=== PATIENT | female | born 1955 | race Asian ===

== ENCOUNTER → 2023-08-05 13:02 | Outpatient (REF) | payer OTHER, SELFPAY | LOC: WDC 13:02 | PROVIDERS: ATTENDING PHYSICIAN Internal Medicine | DX: Z12.31 Encounter for screening mammogram for malignant neoplasm of breast (principal) | CPT/HCPCS: 77063; 77067 ==

== ENCOUNTER → 2023-08-10 08:50 | Outpatient (REF) | payer MEDICARE, SELFPAY | LOC: WDC 08:50 | PROVIDERS: ATTENDING PHYSICIAN Internal Medicine | DX: R92.8 Other abnormal and inconclusive findings on diagnostic imaging of breast (principal); Z13.820 Encounter for screening for osteoporosis; M81.0 Age-related osteoporosis without current pathological fracture | CPT/HCPCS: 77080 ==

== ENCOUNTER 2024-03-23 06:21 | Day surgery (SDC) | payer OTHER, SELFPAY ==
[2024-03-23 08:41] LABS: Glucose - Point of Care 107 mg/dl (70-99)
== END 2024-03-23 10:37 | disposition home or self-care (01) ==
LOC: GI 06:21
PROVIDERS: ATTENDING PHYSICIAN Internal Medicine Gastroenterology
DX: Z12.11 Encounter for screening for malignant neoplasm of colon (principal); D12.0 Benign neoplasm of cecum; D12.2 Benign neoplasm of ascending colon; Q43.8 Other specified congenital malformations of intestine; K64.8 Other hemorrhoids; K29.50 Unspecified chronic gastritis without bleeding; K22.89 Other specified disease of esophagus; K44.9 Diaphragmatic hernia without obstruction or gangrene; K31.7 Polyp of stomach and duodenum; Z86.0100 Personal history of colon polyps, unspecified
CPT/HCPCS: 45380; 43239; 88305; 82962; 88342

== ENCOUNTER → 2024-03-28 10:03 | Outpatient (REF) | payer OTHER, SELFPAY | LOC: RAD 10:03 | PROVIDERS: ATTENDING PHYSICIAN Internal Medicine | DX: R77.2 Abnormality of alphafetoprotein (principal) | CPT/HCPCS: 76700 ==

== ENCOUNTER 2024-04-17 13:46 | Inpatient (IN) | payer OTHER, SELFPAY ==
[2024-04-17] VITALS (16 sets, daily range): BP systolic 113–163; BP diastolic 62–96; PULSE 106; O2SAT 96; BMI 21.5; BMI 21.0
--- NOTE | 2024-04-17 09:15 | ED.GENMED ---
History of Present Illness
<Lucille Lopez PA-C - Last Filed: 04/17/24 11:07>
General
Chief Complaint: Dizziness
Source: patient
Exam Limitations: none
Time Seen by Provider: 04/17/24 09:15
Nursing documentation reviewed up to this point in time: agreed with
History of Present Illness
History of Present Illness:
This is a 69-year-old female past medical history of hypertension, GERD, diabetes, presents emergency department today with concerns of headache and dizziness since last night. Patient reports that her headache comes and goes and she feels it in
the front of her forehead. She has never had a headache like this before. She states that she took Tylenol and to sleep and when she woke up her symptoms were still present. She describes the dizziness as a room spinning sensation. She says that
the dizziness does not change with position. Her son is translating for her and notes that she also has had associated body aches diffusely as well as cough and is concerned he might have the flu. She also has on and off nausea. She she also
complains of intermittent chest pressure but denies any shortness of breath. She states that the chest pressure started last night. She denies any fevers or chills, abdominal pain. Denies any syncopal episodes. She notes that she has had low
back pain that started with this yesterday as well, she also feels generalized weakness, she denies any urinary incontinence, paresthesias. She denies any dysarthria, dysphagia, dysphonia.
Past History
<Lucille Lopez PA-C - Last Filed: 04/17/24 11:07>
Past History
ED Past Medical History: HTN and NIDDM
Social History
Tobacco: Non-smoker
Alcohol: None
Review of Systems
<Lucille Lopez PA-C - Last Filed: 04/17/24 11:07>
Review of Systems
All Other Systems: ROS reviewed and negative except as documented in HPI and ROS
Phy Exam
<Lucille Lopez PA-C - Last Filed: 04/17/24 11:07>
Physical Exam
Physical Exam:
General: Patient is well appearing and in no acute distress; non-toxic
Skin: Warm and dry, no rashes or lesions
Head: Normocephalic, atraumatic
Eyes: Sclera non-icteric. EOMs intact.
Cardiac: Regular rate and rhythm, no murmurs
Peripheral Vascular: No lower extremity swelling or edema
Pulm: Normal respiratory effort, no wheezes, rales, rhonchi
Musculoskeletal: 5/5 strength in bilateral upper and lower extremities, paralumbar tenderness noted
Neuro: CN II-XII intact, no focal neurologic deficits. Sensation intact to light touch bilaterally. Normal finger-nose, [id number] testing.
Psychiatric: Appropriate mood and affect.
Course
<Lucille Lopez PA-C - Last Filed: 04/17/24 11:07>
Orders/Labs/Results
Orders:
Orders
04/17/24 08:57
Electrocardiogram (*1) Urgent
Reason for Study: Vertigo / Dizzy
EKG- Treatment ONCE
04/17/24 09:34
CT Head W/o Iv Contrast Urgent
Comment:
Reason For Exam: headache, dizziness
Physical Therapy Consult [Pt Eval And Treat] Urgent
Activity Level: As Tolerated
04/17/24 09:43
COVID-19 Antigen Urgent
Source: Nasal Swab
Complete Blood Count/With Diff Urgent
Comprehensive Metabolic Panel Urgent
Troponin I Urgent
Influenza A+B Rapid Molecular Urgent
DIVYA Source: Nasal Swab
Specimen Description:
04/17/24 10:35
Diphenhydramine [Benadryl] 12.5 mg IV NOW STA
Ketorolac [Toradol] 15 mg IV NOW STA
Metoclopramide [Reglan] 10 mg IV NOW STA
04/17/24 10:57
Osmolality, Random Urine Urgent
04/17/24 11:02
Add On- LAB Urgent
Tests Added?: serum osmolality
Abnormal Lab Results
04/17/24
09:43
RBC 3.98 L 10^6/uL
(4.20-5.40)
Hgb 11.7 L g/dL
(12.0-16.0)
Hct 34.0 L %
(37.0-47.0)
Absolute Lymphs (auto) 0.3 L 10^3/uL
(1.2-3.4)
Immature Gran % 0.7 H %
(0-0.5)
Neutrophils % 85.3 H %
(42.2-75.2)
Lymphocytes % 4.8 L %
(20.5-51.1)
Sodium 126 L mmol/L
(135-145)
Chloride 89 L mmol/L
(98-107)
Creatinine 0.5 L mg/dL
(0.6-1.0)
Glucose 145 H mg/dl
(70-99)
04/17/24 09:43
04/17/24 09:43
Vital Signs
Initial and Last Documented VS:
Initial Vital Signs
Temp Pulse Resp BP Pulse Ox
98.2 F 107 16 156/96 98
04/17/24 08:54 04/17/24 08:54 04/17/24 08:54 04/17/24 08:54 04/17/24 08:54
Last Documented Vital Signs
Temp Pulse Resp BP Pulse Ox
98.2 F 107 23 161/89 95
04/17/24 08:54 04/17/24 11:00 04/17/24 11:00 04/17/24 11:00 04/17/24 11:00
<David Dai, DO - Last Filed: 04/17/24 11:07>
Orders/Labs/Results
Orders:
Orders
04/17/24 08:57
Electrocardiogram (*1) Urgent
Reason for Study: Vertigo / Dizzy
EKG- Treatment ONCE
04/17/24 09:34
CT Head W/o Iv Contrast Urgent
Comment:
Reason For Exam: headache, dizziness
Physical Therapy Consult [Pt Eval And Treat] Urgent
Activity Level: As Tolerated
04/17/24 09:43
COVID-19 Antigen Urgent
Source: Nasal Swab
Complete Blood Count/With Diff Urgent
Comprehensive Metabolic Panel Urgent
Troponin I Urgent
Influenza A+B Rapid Molecular Urgent
DIVYA Source: Nasal Swab
Specimen Description:
04/17/24 10:35
Diphenhydramine [Benadryl] 12.5 mg IV NOW STA
Ketorolac [Toradol] 15 mg IV NOW STA
Metoclopramide [Reglan] 10 mg IV NOW STA
04/17/24 10:57
Osmolality, Random Urine Urgent
04/17/24 11:02
Add On- LAB Urgent
Tests Added?: serum osmolality
Abnormal Lab Results
04/17/24
09:43
RBC 3.98 L 10^6/uL
(4.20-5.40)
Hgb 11.7 L g/dL
(12.0-16.0)
Hct 34.0 L %
(37.0-47.0)
Absolute Lymphs (auto) 0.3 L 10^3/uL
(1.2-3.4)
Immature Gran % 0.7 H %
(0-0.5)
Neutrophils % 85.3 H %
(42.2-75.2)
Lymphocytes % 4.8 L %
(20.5-51.1)
Sodium 126 L mmol/L
(135-145)
Chloride 89 L mmol/L
(98-107)
Creatinine 0.5 L mg/dL
(0.6-1.0)
Glucose 145 H mg/dl
(70-99)
04/17/24 09:43
04/17/24 09:43
Vital Signs
Initial and Last Documented VS:
Initial Vital Signs
Temp Pulse Resp BP Pulse Ox
98.2 F 107 16 156/96 98
04/17/24 08:54 04/17/24 08:54 04/17/24 08:54 04/17/24 08:54 04/17/24 08:54
Last Documented Vital Signs
Temp Pulse Resp BP Pulse Ox
98.2 F 107 23 161/89 95
04/17/24 08:54 04/17/24 11:00 04/17/24 11:00 04/17/24 11:00 04/17/24 11:00
<Lucille Lopez PA-C - Last Filed: 04/17/24 11:07>
MDM/Problems Addressed
Differential Diagnosis Includes:
See below
MDM/Problems Addressed:
NUMBER AND COMPLEXITY OF PROBLEMS ADDRESSED AT THE ENCOUNTER
� Chronic conditions affecting care: Hypertension, GERD, diabetes
� Acute Exacerbation and/or Progression of Chronic Illness:
� Differential Diagnosis includes: Complex migraine, tension headache, vestibular neuritis, BPPV, influenza, COVID-19, ACS, CVA
AMOUNT AND/OR COMPLEXITY OF DATA TO BE REVIEWED AND ANALYZED
� I performed an independent evaluation of and my interpretation is:
EKG: Sinus tachycardia with rate 104, incomplete right bundle branch noted
CT:
Laboratory Studies:
Other:
� Review of other/old records: Reviewed previous records, patient seen for acute dehydration on 10/11/2021 she presented with dizziness and vomiting
� Clinical information was obtained by an independent historian: son present who provided HPI and translated in mandarin for patient
� Prescriptions/Medications Considered but not given: n/a
� Further testing considered but not performed:
RISK OF COMPLICATIONS AND/OR MORBIDITY OR MORTALITY OF PATIENT MANAGEMENT
� Social determinants of health affecting care: language barrier
� Discussion with other providers: ER attending
� Escalation of care including admission/observation vs risk of discharge considered:
69-year-old female with past medical history of diabetes, GERD, hypertension presents emergency department today with concerns of headache and dizziness. She also has associated intermittent chest pressure and body aches. On my physical exam, she
is well-appearing, in no acute distress, her symptoms do not seem to change positionally, she has no focal neurologic deficits, is normal finger-nose [id number] testing, intact sensation. Considering new headache/change in character of headache,
will send for CT of the head, will check EKG trop in light of chest pressure and dizziness.
No evident evidence of bleeding on CT scan. Will treat with Toradol Reglan and Benadryl. Labs reveal sodium of 126. No evidence of dehydration. No clear cause of hyponatremia at this time, will admit for symptomatic hyponatremia and further
workup.
<Lucille Lopez PA-C - Last Filed: 04/17/24 11:07>
*Pulse Oximetry
Patient hypoxic: no
*EKG
Interpreted by ED Provider?: Yes (see above)
*Critical Care Note
Total Time (30-74mins, 75-104mins- exclusive of procedures): Not Applicable
ED Attending Note
<Lucille Lopez PA-C - Last Filed: 04/17/24 11:07>
-
Portions of this chart may have been created with voice recognition software.� Occasional wrong word or��sound alike� substitutions may have occurred due to the inherent limitations of voice recognition software.
<David Dai DO - Last Filed: 04/17/24 11:07>
ED Attending Note
Patient seen and examined by attending physician: Yes
I performed a history and physical exam of patient and discussed management with resident, I reviewed resident's note and agree with documented findings and plan of care.: Yes
ED Attending Note:
I have reviewed and agree with patient treatment plan by Lucille Lopez. My exam revealed 61-year-old female afebrile. Mild tachycardia. No neurologic deficits. Unclear cause of hyponatremia. Will evaluate with further labs, and admit patient.
Unclear if patient is
Discharge Plan
Departure
Patient Disposition: Admit
Discharge Problem:
Acute hyponatremia, Dizziness
Prescriptions:
No Action
Metformin HCl
850 mg PO BID
famotidine 20 mg Tablet
20 mg PO DAILY
docusate sodium [Col-Rite] 100 mg Capsule
100 mg PO BID
hydrochlorothiazide 25 mg Tablet
25 mg PO DAILY
valsartan 160 mg Tablet
160 mg PO DAILY
senna 8.6 mg Capsule
8.6 mg PO BID
Paxlovid 300 mg (150 mg x 2)-100 mg Tablet
3 tab PO QAM AND QPM
ondansetron 4 mg Tablet,Disintegrating
4 mg PO BIDPRN PRN (Reason: nausea/vomiting) Qty: 10 0RF
meclizine [Antivert] 25 mg Tablet,Chewable
25 mg PO BIDPRN PRN (Reason: nausea or vertigo) Qty: 10 0RF
Referrals:
Elizabeth Crow MD [Family Provider] -
Interventions
Interventions:
*Risk Screen - Suicide Last Done: 04/17/24 08:54
*General Assessment Last Done: 04/17/24 09:25
*Neglect/Abuse Screening Last Done: 04/17/24 08:54
ED- Fall Risk Assessment Last Done: 04/17/24 09:25
*ED COVID-19 Vaccine History Last Done: 04/17/24 09:25
ED- Neurological Assessment Last Done: 04/17/24 09:25
ED- Cardiac Assessment Last Done: 04/17/24 09:25
Discharge Date and Time
Print Language: J[place]
[2024-04-17 09:58] LABS: % Eosinophils 1.1 % (0-6); % Immature Granulocytes 0.7 % (0-0.5); % Lymphocytes 4.8 % (20.5-51.1); % Monocytes 8.1 % (1.7-9.3); % Neutrophils 85.3 % (42.2-75.2); Absolute Eosinophils 0.1 10^3/uL (0-0.7); Absolute Lymphocytes 0.3 10^3/uL (1.2-3.4); Absolute Monocytes 0.5 10^3/uL (0.1-0.6); Absolute Neutrophils 4.8 10^3/uL (1.4-6.5); Hemoglobin 11.7 g/dL (12.0-16.0); Mean Corp Hgb Conc. 34.4 g/dL (33.0-37.0); Mean Corpuscular Hgb 29.4 pg (27.0-31.0); Mean Corpuscular Volume 85.4 fL (81.0-99.0); Mean Platelet Volume 9.3 fL (7.4-10.4); Nucleated Red Blood Cells % 0 %; Platelet Count 134 10^3/uL (130-400); Red Blood Cell Count 3.98 10^6/uL (4.20-5.40); Red Cell Dist. Width 11.9 % (11.5-14.5); White Blood Cell Count 5.6 10^3/uL (4.8-10.8)
[2024-04-17 10:04] LABS: ALT (SGPT) 21 U/L (0-35); AST (SGOT) 24 U/L (14-36); Albumin 4.2 g/dl (3.5-5.0); Alkaline Phosphatase 71 U/L (38-126); Blood Urea Nitrogen 12 mg/dl (7-17); Calcium 8.4 mg/dl (8.4-10.2); Carbon Dioxide 29 mmol/L (22-30); Chloride 89 mmol/L (98-107); Estimated Creatinine Clearance 77 ml/min; Glucose 145 mg/dl (70-99); Potassium 3.8 mmol/L (3.5-5.1); Sodium 126 mmol/L (135-145); Total Bilirubin 0.5 mg/dl (0.2-1.3); Total Protein 6.5 g/dl (6.3-8.2); eGFR > 60.00
[2024-04-17 10:05] LABS: COVID-19 Antigen Negative (Negative)
[2024-04-17 10:18] LABS: Troponin I 0.012 ng/ml
[2024-04-17] MEDS: REGLAN 10 MG IV (10:53)
[2024-04-17] MEDS: BENADRYL 12.5 MG IV (10:53)
[2024-04-17] MEDS: TORADOL 15 MG IV (10:53)
[2024-04-17 11:47] LABS: Osmolality Serum 268 mOsm/kg (275-300)
--- NOTE | 2024-04-17 12:03 | HPS.HSE ---
Addendum entered and electronically signed by Regis Pablo MD 04/17/24 13:53:
I saw and examined the patient.
The [employer]AD[employer]'s note was reviewed and I agree with the note.
Comment:
69-year-old female extensive past medical history is presenting from home with complaints of weakness, headache and feeling off balance. Patient also with low-grade temperatures at home. Has not been eating and drinking for the past 48 hours.
States of nonproductive cough. Denies any chest pain shortness of breath. Denies any other focal weakness. Denies any numbing or tingling. Patient headache improved after receiving medication IV Toradol in the ER. Of note son at bedside
assisted with translation.
General: Well Developed, Well Nourished and No Apparent Distress
HEENT: NormoCephalic, Moist mucous membranes and Atraumatic
Respiratory: Clear
Cardiac: S1/S2 and Regular Rhythm; No Murmur or Rub
GI: Soft, Non Tender, Non Distended and Normal Bowel Sounds; No Organomegaly
Rectal: Deferred by Provider
Musculoskeletal: No Clubbing, No Cyanosis and No Edema
Skin: No Rash
Neuro: AO x 3 and Nonfocal/grossly intact
Psych: Calm
Impression
Acute on chronic hyponatremia likely secondary to decreased p.o. intake and HCTZ
Headache
Dizziness likely secondary dehydration versus orthostatic hypotension
Generalized body ache and cough likely secondary to viral upper respiratory tract infection
Diabetes mellitus
Chronic abdominal pain
Chronic constipation
Primary hypertension
Plan
Start patient on gentle IV fluids normal saline x 1 L only
Hold HCTZ
Tylenol as needed
Continue with home medication except HCTZ
CT of the head noted and finding discussed with patient son
If no improvement in gait then check MRI of the brain
COVID and influenza negative
Insulin sliding scale and Accu-Cheks
Check chest x-ray
DVT prophylaxis
Discussed with patient's son Bhanu at bedside in detail.
I spent a total of 78 minutes with the patient or on the floor. More than 50% of this time involved counseling and coordination of care.
Original Note:
Family Physician
-
Family Physician: Elizabeth Crow MD
Chief Complaint
-
fatigue weakness
History of Present Illness
69-year-old female past medical history of hypertension, GERD, diabetes, presents emergency department today with concerns of headache and dizziness since last night. Patient reports that her headache comes and goes and she feels it in the front of
her forehead. She states that she took Tylenol which helped her to sleep. she was also noted to have low grade temp. she extremely weak and off balance.she also has had associated body aches diffusely. she was also noted have non productive cough.
denied chest pain, sob. denied vomiting and diarrhea. she felt nauseous. 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 she routinely get colonoscopy. deneid dysuria or hematuria. she is also stated poor
oral intake since yesterday.
covid flu negative. noted sodium of 126. admitting for further management.
Medical History
Past Medical History
Past Medical History: Reports Other
Additional Past Medical History:
HTN
GERD
DM
Past Surgical History: Reports Other
Additional Past Surgical History:
cervical fustion
Social History
Tobacco: Non-smoker
Alcohol: Occasional
Drug: None
Living: With Family
Family History
Family History: Not pertinent
Allergies / Home Medications
Allergies reflects when Allergies were last updated in [facility].
Home Medications with original date entered in [facility]
Allergy/Medication List:
Allergies
Allergy/AdvReac Type Severity Reaction Status Date / Time
No Known Allergies Allergy Verified 04/17/24 08:57
Home Medications
acetaminophen 325 mg tablet (Tylenol) 650 mg PO Q6HPRN PRN headache 04/17/24
cholecalciferol (vitamin D3) 25 mcg (1,000 unit) tablet (Vitamin D3) 25 mcg PO DAILY 04/17/24
hydrochlorothiazide 25 mg tablet 25 mg PO DAILY 04/17/24
lidocaine 4 % topical patch 1 patch topical DAILYPRN PRN back of neck 04/17/24
linaclotide 145 mcg capsule (Linzess) 145 mcg PO DAILY 04/17/24
metformin 750 mg tablet,extended release 24 hr 750 mg PO BID 04/17/24
pantoprazole 40 mg tablet,delayed release (Protonix) 40 mg PO DAILYPRN PRN gerd 04/17/24
rosuvastatin 10 mg tablet (Crestor) 10 mg PO QPM 04/17/24
sitagliptin phosphate 100 mg tablet (Januvia) 100 mg PO DAILY 04/17/24
valsartan 80 mg tablet 80 mg PO DAILY 04/17/24
Review of Systems
-
Constitutional: Reports Fatigue
EENT: Reports No Symptoms
Respiratory: Reports Cough
Cardiac: Reports No Symptoms
Abdomen/GI: Reports Abdominal Pain and Nausea
: Reports No Symptoms
Musculoskeletal: Reports No Symptoms
Skin: Reports No Symptoms
Neurological: Reports Dizzy, Headache and Weakness
Endocrine: Reports No Symptoms
Hematologic/Lymphatic: Reports No Symptoms
Psych: Reports No Symptoms
Physical Exam
Vital Signs
Vital Signs
Temp Pulse Resp BP Pulse Ox
98.2 F 107 23 161/89 95
04/17/24 08:54 04/17/24 11:00 04/17/24 11:00 04/17/24 11:00 04/17/24 11:00
Physical Exam
General: Well Developed, Well Nourished and No Apparent Distress
HEENT: NormoCephalic, Moist mucous membranes and Atraumatic
Respiratory: Clear
Cardiac: S1/S2 and Regular Rhythm; No Murmur or Rub
GI: Soft, Non Tender, Non Distended and Normal Bowel Sounds; No Organomegaly
Rectal: Deferred by Provider
Musculoskeletal: No Clubbing, No Cyanosis and No Edema
Skin: No Rash
Neuro: AO x 3 and Nonfocal/grossly intact
Psych: Calm
Laboratory Results
-
04/17/24 09:43
04/17/24 09:43
Laboratory Results
Total Bilirubin 0.5 mg/dl (0.2-1.3) 04/17/24 09:43
AST 24 U/L (14-36) 04/17/24:43
ALT 21 U/L (0-35) 04/17/24:43
Alkaline Phosphatase 71 U/L (38-126) 04/17/24 09:43
Troponin I 0.012 ng/ml 04/17/24 09:43
Data Reviewed
-
CT Scan: Report Reviewed by me
Lab Data: Labs Reviewed by me
Impression/Plan
-
#dizzy/CONTRERAS/cough/generalized body ache likely viral infection
-covid flu negative
-obtain chest x ray
-Tessalon prn for cough
-Tylenol prn for CONTRERAS
-ctm
-Pt consulted
# acute on chronic hyponatremia likely dehydration/diuretics
-na 126
-Head CT with No CT evidence for acute intracranial hemorrhage or transcortical infarct.Moderate white matter leukoaraiosis (greatest in the left frontal lobe).
-normal saline 80x1 bag
-trend BMP
-hold HCTZ
#tachycardia likely from dehydration
-EKg with sinus tachycardia, incomplete right bundle branch and left bundlen branch block, incomplete LEFT ANTERIOR FASCICULAR BLOCK
-normal saline continued
-continue to monitor
#essential HTn
-hctz held
-continue valsartan
#type 2 Dm
-sliding scale
-metformin and Januvia continued
-CHO diet
#IBS
-Linzess continued
#GERD
-PPI continued
#HLD
-statin
#DVT prophylaxis
-Lovenox
#CODE status
-full code
[2024-04-17] MEDS: NSS 1000 IV (12:58)
[2024-04-17] MEDS: TYLENOL 650 MG PO ×2 (14:03→19:41)
--- NOTE | 2024-04-17 14:09 | EDRN ---
Patient taken to room 339-2 on monitor on stretcher by geotechnical engineer. Son with patient.
[2024-04-17 16:59] LABS: Glucose - Point of Care 237 mg/dl (70-99)
[2024-04-17] MEDS: LOVENOX 40 MG SC (17:47)
[2024-04-17] MEDS: NOVOLOG FLEXPEN-LOW RESISTANCE 2 UNITS SC (17:47)
[2024-04-17] MEDS: CRESTOR 10 MG PO (17:48)
[2024-04-17 20:52] LABS: Osmolality Urine 724 mOsm/kg (300-900)
[2024-04-17 21:32] LABS: Glucose - Point of Care 158 mg/dl (70-99)
[2024-04-17] MEDS: TESSALON PERLES 200 MG PO (21:36)
[2024-04-18] VITALS (8 sets, daily range): BP systolic 117–160; BP diastolic 71–93; PULSE 80–86
[2024-04-18] MEDS: TYLENOL 650 MG PO ×4 (03:54→19:38)
[2024-04-18] MEDS: LINZESS 145 MCG PO (05:31)
[2024-04-18 06:21] LABS: Hematocrit 30.4 % (37.0-47.0); Hemoglobin 10.6 g/dL (12.0-16.0); Mean Corp Hgb Conc. 34.9 g/dL (33.0-37.0); Mean Corpuscular Hgb 29.5 pg (27.0-31.0); Mean Corpuscular Volume 84.7 fL (81.0-99.0); Mean Platelet Volume 9.2 fL (7.4-10.4); Platelet Count 115 10^3/uL (130-400); Red Blood Cell Count 3.59 10^6/uL (4.20-5.40); Red Cell Dist. Width 11.9 % (11.5-14.5); White Blood Cell Count 2.8 10^3/uL (4.8-10.8)
[2024-04-18 06:47] LABS: Blood Urea Nitrogen 15 mg/dl (7-17); Carbon Dioxide 25 mmol/L (22-30); Chloride 89 mmol/L (98-107); Estimated Creatinine Clearance 66 ml/min; Glucose 129 mg/dl (70-99); Potassium 3.5 mmol/L (3.5-5.1); Sodium 124 mmol/L (135-145); eGFR > 60.00
[2024-04-18 07:47] LABS: Glucose - Point of Care 114 mg/dl (70-99)
[2024-04-18] MEDS: DIOVAN 80 MG PO (08:53)
[2024-04-18] MEDS: NOVOLOG FLEXPEN-LOW RESISTANCE SC ×3 (08:54→16:42)
[2024-04-18] MEDS: TESSALON PERLES 200 MG PO ×3 (08:58→19:38)
[2024-04-18] MEDS: ANESTHETIC LOZENGE 1 LOZENGE PO ×3 (10:02→23:11)
[2024-04-18 10:18] LABS: Glycohemoglobin (HgbA1c) 6.6 % (4.0-5.6)
[2024-04-18 11:36] LABS: Urine Albumin Negative (Neg - Trace); Urine Bilirubin Negative (Negative); Urine Character Clear (Clear); Urine Color Yellow; Urine Glucose Negative (Negative); Urine Ketone Negative (Negative); Urine Leukocyte 1+ (Negative); Urine Nitrite Negative (Negative); Urine Occult Blood Negative (Negative); Urine Urobilinogen Negative (Neg - 1+)
[2024-04-18 11:37] LABS: Urine Red Blood Cell 0-2 /HPF (0-2); Urine Squamous Cell 0-2 /LPF (Few); Urine White Cell 0-2 /HPF (0-5)
--- NOTE | 2024-04-18 11:38 | W.PN.HOSP.TC ---
Addendum entered and electronically signed by Regis Pablo MD 04/18/24 14:26:
other
Original Note:
Today's Communication/Plan
-
RSV pending
Bcx
Ua w/ Ucx
nephro input
trend cbc
Assessment / Plan
Assessment / Plan
#Upper respiratory tract viral infection likely viral infection.
#Fevers likely 2/2 above
-covid flu negative
-CXR noted-no infiltrate.
-Tessalon prn for cough
-Tylenol prn for CONTRERAS
-Check RSV. Check blood culture and UA.
#Acute on chronic hyponatremia likely dehydration/diuretics/decrease po intake
-na 126 to 124.
-Head CT with No CT evidence for acute intracranial hemorrhage or transcortical infarct.Moderate white matter leukoaraiosis (greatest in the left frontal lobe).
-normal saline 80x1 bag-Dced
-trend BMP
-hold HCTZ
-Urine osm normal. Low serum osm on admisison. Urine na pending.
-Will ask nephro to eval
#tachycardia likely from dehydration
-EKg with sinus tachycardia, incomplete right bundle branch and left bundlen branch block, incomplete LEFT ANTERIOR FASCICULAR BLOCK
-normal saline stopped. HR improved
-continue to monitor
#essential HTn
-hctz held
-continue valsartan. BP 122/75
#type 2 Dm
-sliding scale
-metformin and Januvia hold for now
-CHO diet
-POC am 114
#IBS
-Linzess continued
#GERD
-PPI continued
#HLD
-statin
#Acute Thrombocytopenia
#Chronic leukopenia
#Anemia ?dilutional some componenet
-Plt at 115 from 134k on admission
-monitor for now
-trend wbc and fever curve-due to viral infection ?
-check anemia panel.
#DVT prophylaxis
-Lovenox
#CODE status
-full code
d/w with son at bedside in details.
Anticipated Discharge: > 48 hours
Subjective/Interval History
-
Date of Service: April 18, 2024
states of sore throat
not much appetite
spiked fevers
no productive cough
son at bedside assisted with translation
Objective Data
-
Labs:
Laboratory Results
04/18/24
05:18
WBC 2.8 L
Hgb 10.6 L
Hct 30.4 L
Plt Count 115 L
Sodium 124 L
Potassium 3.5
Chloride 89 L
Carbon Dioxide 25
BUN 15
Creatinine 0.7
Glucose 129 H
Calcium 8.0 L
Vital Signs:
Vital Signs
Temp Pulse Resp BP Pulse Ox
98.1 F 77 18 122/75 97
04/18/24 11:16 04/18/24 11:16 04/18/24 11:16 04/18/24 11:16 04/18/24 11:16
I&O
04/17/24 04/18/24 04/19/24
06:59 06:59 06:59
Intake Total 240 / 240
Balance 240 / 240
Physical Exam
-
General: Well Developed and No Apparent Distress
HEENT: Normocephalic, Atraumatic and Moist Mucous Membranes
Respiratory: Clear to Auscultation
Cardiac: Regular Rhythm and S1/S2; Negative Murmur, Rub or Gallop
GI: Soft, Nontender, Nondistended and Normal Bowel Sounds; Negative Organomegaly
Rectal: Deferred by Provider
Musculoskeletal: No Clubbing, No Cyanosis and No Edema
Skin: Negative Rash
Neuro: Awake, Alert, Oriented, AO x 3, No Motor Deficits and Nonfocal/Grossly Intact
Psych: Calm
Data Reviewed
-
Total Time Spent with Patient (in minutes): 60
--- NOTE | 2024-04-18 11:58 | RESPNOTE ---
RSV nasopharynx swab collected from patient. Pt's son bedside and translated instructions to nasal swab procedure. Both nostrils were swabbed without incident. Pt tolerated well. Specimen labeled and sent to the lab.
[2024-04-18 11:59] LABS: Glucose - Point of Care 213 mg/dl (70-99)
[2024-04-18 12:08] LABS: Urine Sodium 20 mmol/L (30-90)
--- NOTE | 2024-04-18 12:18 | W.CON.NEPH ---
Consultation
-
Date/Time Consultation Requested: April 18, 2024 at 8 AM
Date/Time Consultation Performed: April 18, 2024 at 11 AM
Requesting Provider: Dr. Pablo
Performing Provider: Dr. Manjeet Huizar
Reason for Consultation: Hyponatremia
Medical History
-
Chief Complaint: Cough and hyponatremia
History of Present Illness:
69-year-old female past medical history of hypertension, GERD, diabetes, presents emergency department today with concerns of headache and dizziness since last night and cough and low-grade fever
Renal consult for hyponatremia of 126
Review of records she has had hyponatremia in 2021 is lowest 125
History is obtained via her son at the bedside as the patient is not Upper Sorbian speaking
She denies NSAID or any excessive water intake she is a nonalcoholic
She has had decreased p.o. intake over the last week
She is also on hydrochlorothiazide as an outpatient but has been on that for quite some time
Past Medical History
Hypertension, diabetes, reflux
Social History
Tobacco: Non-Smoker
Drug: None
Family History
Family History: Not Pertinent
Allergies / Home Medications
Allergy/AdvReac Type Severity Reaction Status Date / Time
No Known Allergies Allergy Verified 04/17/24 08:57
�Medication �Instructions �Recorded �Confirmed �Type
acetaminophen 325 mg tablet 650 mg PO Q6HPRN PRN headache 04/17/24 04/17/24 History
(Tylenol)
cholecalciferol (vitamin D3) 25 25 mcg PO DAILY Supplement 04/17/24 04/17/24 History
mcg (1,000 unit) tablet (Vitamin
D3)
hydrochlorothiazide 25 mg tablet 25 mg PO DAILY Blood Pressure 04/17/24 04/17/24 History
lidocaine 4 % topical patch 1 patch topical DAILYPRN PRN back 04/17/24 04/17/24 History
of neck
linaclotide 145 mcg capsule 145 mcg PO DAILY Constipation 04/17/24 04/17/24 History
(Linzess)
metformin 750 mg tablet,extended 750 mg PO BID Diabetes 04/17/24 04/17/24 History
release 24 hr
pantoprazole 40 mg tablet,delayed 40 mg PO DAILYPRN PRN GERD 04/17/24 04/17/24 History
release (Protonix)
rosuvastatin 10 mg tablet (Crestor) 10 mg PO QPM High Cholesterol 04/17/24 04/17/24 History
sitagliptin phosphate 100 mg 100 mg PO DAILY Diabetes 04/17/24 04/17/24 History
tablet (Januvia)
valsartan 80 mg tablet 80 mg PO DAILY Blood Pressure 04/17/24 04/17/24 History
Review of Systems
-
Cough lethargy decreased p.o. intake
All other systems: Negative unless noted
Physical Exam
Vital Signs
Vital Signs
Temp Pulse Resp BP Pulse Ox
98.1 F 77 18 122/75 97
04/18/24 11:16 04/18/24 11:16 04/18/24 11:16 04/18/24 11:16 04/18/24 11:16
Lab Results
WBC 2.8 10^3/uL (4.8-10.8) L 04/18/24 05:18
RBC 3.59 10^6/uL (4.20-5.40) L 04/18/24 05:18
Hgb 10.6 g/dL (12.0-16.0) L 04/18/24 05:18
Hct 30.4 % (37.0-47.0) L 04/18/24 05:18
Plt Count 115 10^3/uL (130-400) L 04/18/24 05:18
Sodium 124 mmol/L (135-145) L 04/18/24 05:18
Potassium 3.5 mmol/L (3.5-5.1) 04/18/24 05:18
Chloride 89 mmol/L (98-107) L 04/18/24 05:18
Carbon Dioxide 25 mmol/L (22-30) 04/18/24 05:18
BUN 15 mg/dl (7-17) 04/18/24 05:18
Creatinine 0.7 mg/dL (0.6-1.0) 04/18/24 05:18
eGFR > 60.00 04/18/24 05:18
Glucose 129 mg/dl (70-99) H 04/18/24 05:18
Calcium 8.0 mg/dl (8.4-10.2) L 04/18/24 05:18
Albumin 4.2 g/dl (3.5-5.0) 04/17/24 09:43
Physical Exam
General no acute distress
HEENT no cephalic atraumatic extraocular muscle intact no scleral icterus no JVD neck supple
lungs diffuse rhonchi
heart regular S1-S2 positive
abdomen soft nontender positive bowel sounds
extremities no edema pulses present bilateral
Neurologically nonfocal alert and oriented x 3
Skin no lesions no abrasions no petechiae
Psych normal affect no bizarre behavior
Data Reviewed
-
Radiology: Image Personally Visualized and interpreted (No acute pathology chest x-ray)
Assessment/Plan
-
69-year-old female past medical history of hypertension, GERD, diabetes, presents emergency department today with concerns of headache and dizziness since last night and cough
Renal consult for hyponatremia of 126
Review of records she has had hyponatremia in 2021 is lowest 125
History is obtained via her son at the bedside as the patient is not Upper Sorbian speaking
She denies NSAID or any excessive water intake she is a nonalcoholic
She has had decreased p.o. intake over the last week
She is also on hydrochlorothiazide as an outpatient but has been on that for quite some time
Impression:
Hyponatremia of 126 on hydrochlorothiazide.
Fever associated with cough.
Hypertension stable.
Diabetes. Stable
Plan:
Urine sodium 20 in the setting of fever decreased p.o. intake on hydrochlorothiazide.
Discontinue hydrochlorothiazide.
Fluid restrict.
Increase protein in her diet as discussed with her son.
Recheck BMP later this afternoon.
Blood cultures drawn
Avoid NSAIDs
[2024-04-18 13:33] LABS: Ferritin 53.3 ng/ml (11.1-264.0)
[2024-04-18 13:56] LABS: Blood Urea Nitrogen 13 mg/dl (7-17); Calcium 7.8 mg/dl (8.4-10.2); Carbon Dioxide 28 mmol/L (22-30); Chloride 90 mmol/L (98-107); Estimated Creatinine Clearance 66 ml/min; Glucose 173 mg/dl (70-99); Potassium 3.7 mmol/L (3.5-5.1); Sodium 125 mmol/L (135-145); eGFR > 60.00
--- NOTE | 2024-04-18 13:59 | PN.CDI ---
CDI
- -
CDI:
Physician Documentation Request
Admit Date: 04/17/24 13:46
Dear Doctor Samy,
Clinical Indicators:
Patient admitted with acute on chronic hyponatremia.
04/18 PN, 'Upper respiratory tract viral infection likely viral infection Fevers likely 2/2 above '
Temp trend on admission:
04/17/24
08:54 04/17/24
13:55
Temp 98.2 F 100.9 F H
HR/RR trend on admission:
04/17/24
09:32 04/17/24
10:00 04/17/24
11:00
Pulse 107 108 107
Resp Rate 24 21 23
04/17/24
11:30 04/17/24
12:00 04/17/24
12:15
Pulse 103 108 107
Resp Rate 25 20 28
Please clarify which of the following most accurately describes the status of the patient's infection:
Sepsis, POA
- Systemic manifestations of infection, with 2 or more SIRS criteria which include:
- Fever >100.4 degrees F or hypothermia < 96.8 degrees F
- Leukocytosis - WBC > 12,000 or leukopenia - WBC < 4,000 or > 10% bands
- Tachycardia > 90 beats per minute
- Tachypnea - RR > 20 breaths per minute or PaCO2 , 32mmHg
Source: Merck Manual 2013
Viral URI Only, Without Systemic Illness
Other
Use of terms such as suspected, likely, concern for, or probable (associated with a specific diagnosis that is being evaluated, monitored, or treated as if it exists) are acceptable and can be coded in the inpatient setting, when documented at the
time of discharge.
Thank you,
Ashlee Holguin RN BSN
CDI Specialist
available via tiger text
Please use your independent medical judgment in providing your response.
[2024-04-18 14:05] LABS: Folate 12.5 ng/ml (2.76-20); Vitamin B12 742 pg/ml (239-931)
--- NOTE | 2024-04-18 14:06 | PN.CDI ---
CDI
- -
CDI:
Physician Documentation Request
Admit Date: 04/17/24 13:46
Dear Doctor Samy,
Clinical Indicators:
Patient admitted with acute on chronic hyponatremia.
04/18 PN, '#Acute Thrombocytopenia #Chronic leukopenia '
WBC, RBC, Plts:
04/18/24
05:18
WBC 2.8 L
RBC 3.59 L
Plt Count 115 L
Based on the above, could you clarify in the progress notes, the appropriate diagnosis, if significant, that supports the above abnormalities and additional evaluation, monitoring and/or treatment rendered:
Pancytopenia
Thrombocytopenia/leukopenia only
Other
Use of terms such as suspected, likely, concern for, or probable (associated with a specific diagnosis that is being evaluated, monitored, or treated as if it exists) are acceptable and can be coded in the inpatient setting, when documented at the
time of discharge.
Thank you,
Ashlee Holguin RN BSN
CDI Specialist
available via tiger text
Please use your independent medical judgment in providing your response.
--- NOTE | 2024-04-18 14:36 | PTCARENOTE ---
patient medicated this am with PRN Tessalon Pearls and Cepacol for frequent cough and c/o sore throat with some relief. has poor intake/appetite. independent to BR, VSS, son in room helping translate for patient, language line in room as well,
will continue to monitor.
[2024-04-18 14:42] LABS: Iron 31 ug/dl (37-170); Magnesium 1.7 mg/dl (1.6-2.3); Phosphorus 3.4 mg/dl (2.5-4.5)
[2024-04-18 14:51] LABS: Percent Saturation 9 % (20-50); Total Iron Binding Capacity 327 ug/dl (265-497)
[2024-04-18 16:31] LABS: Glucose - Point of Care 113 mg/dl (70-99)
--- NOTE | 2024-04-18 16:32 | CM ---
Alert awake oriented patient who lives with her son Bhanu and dgt Vinicio in a 2 story home with 1 steps to enter and 12 steps to bed/bathroom. Pt speaks Telugu and Kazakh. Son speaks both. She is independent in activates of daily living.She does
drive .She uses no adaptive devices.
No VN in past . No SNF hx
Pharmacy [facility] [id number] Crow
PLAN Home with no needs
[2024-04-18] MEDS: CRESTOR 10 MG PO (17:59)
[2024-04-18] MEDS: LOVENOX 40 MG SC (17:59)
[2024-04-18] MEDS: SAMSCA 7.5 MG PO (17:59)
[2024-04-18 20:56] LABS: Glucose - Point of Care 185 mg/dl (70-99)
[2024-04-18 20:58] LABS: Blood Urea Nitrogen 17 mg/dl (7-17); Calcium 8.4 mg/dl (8.4-10.2); Carbon Dioxide 28 mmol/L (22-30); Chloride 94 mmol/L (98-107); Estimated Creatinine Clearance 58 ml/min; Glucose 168 mg/dl (70-99); Potassium 3.9 mmol/L (3.5-5.1); Sodium 129 mmol/L (135-145); eGFR > 60.00
[2024-04-19 03:00] VITALS: BP 149/93
[2024-04-19] MEDS: LINZESS 145 MCG PO (05:05)
[2024-04-19] MEDS: TYLENOL 650 MG PO ×3 (05:05→22:35)
[2024-04-19] MEDS: TESSALON PERLES 200 MG PO ×3 (05:05→18:25)
[2024-04-19 07:15] LABS: Blood Urea Nitrogen 14 mg/dl (7-17); Calcium 8.4 mg/dl (8.4-10.2); Carbon Dioxide 27 mmol/L (22-30); Chloride 100 mmol/L (98-107); Estimated Creatinine Clearance 77 ml/min; Glucose 122 mg/dl (70-99); Sodium 138 mmol/L (135-145); eGFR > 60.00
[2024-04-19 07:28] LABS: Hematocrit 34.4 % (37.0-47.0); Hemoglobin 11.8 g/dL (12.0-16.0); Mean Corp Hgb Conc. 34.3 g/dL (33.0-37.0); Mean Corpuscular Hgb 29.3 pg (27.0-31.0); Mean Corpuscular Volume 85.4 fL (81.0-99.0); Mean Platelet Volume 9.6 fL (7.4-10.4); Platelet Count 119 10^3/uL (130-400); Red Blood Cell Count 4.03 10^6/uL (4.20-5.40); Red Cell Dist. Width 12.1 % (11.5-14.5); White Blood Cell Count 2.2 10^3/uL (4.8-10.8)
[2024-04-19 07:41] VITALS: BP 128/81
[2024-04-19 08:01] LABS: Glucose - Point of Care 125 mg/dl (70-99)
[2024-04-19] MEDS: NOVOLOG FLEXPEN-LOW RESISTANCE SC ×2 (09:25→16:42)
[2024-04-19] MEDS: DIOVAN 80 MG PO (09:28)
[2024-04-19 10:35] LABS: Blood Urea Nitrogen 15 mg/dl (7-17); Calcium 8.7 mg/dl (8.4-10.2); Carbon Dioxide 27 mmol/L (22-30); Chloride 99 mmol/L (98-107); Estimated Creatinine Clearance 77 ml/min; Glucose 142 mg/dl (70-99); Potassium 4.1 mmol/L (3.5-5.1); Sodium 136 mmol/L (135-145); eGFR > 60.00
[2024-04-19 11:19] VITALS: BP 128/81
[2024-04-19 11:43] LABS: Glucose - Point of Care 188 mg/dl (70-99)
[2024-04-19] MEDS: ANESTHETIC LOZENGE 1 LOZENGE PO ×3 (11:53→22:35)
[2024-04-19] MEDS: NOVOLOG FLEXPEN-LOW RESISTANCE 1 UNITS SC (11:53)
--- NOTE | 2024-04-19 11:56 | W.PN.HOSP.TC ---
Today's Communication/Plan
-
await nephro input
monitor Po intake
Trend cbc
DC HCTZ
Assessment / Plan
Assessment / Plan
#Upper respiratory tract l infection likely viral infection.
#Sepsis-poa 2/2 above
-covid flu negative
-CXR noted-no infiltrate.
-Tessalon prn for cough
-Tylenol prn for CONTRERAS
-RSV negative.
-UA negative.
-Blood culture negative so far.
-fevers seems to have subsided
#Acute on chronic hyponatremia likely dehydration/diuretics/decrease po intake
-na 126 to 124-corrected to 138. Repeat 136. Pt auto-corrected by herself without any intervention. Cont to trend bmp. Unclear if hypotonic saline needed. Await nephro input.
-Head CT with No CT evidence for acute intracranial hemorrhage or transcortical infarct.Moderate white matter leukoaraiosis (greatest in the left frontal lobe).
-normal saline 80x1 bag-Dced
-trend BMP
-DC HCTZ
-appreciate nephro recs.
#tachycardia likely from dehydration
-EKg with sinus tachycardia, incomplete right bundle branch and left bundlen branch block, incomplete LEFT ANTERIOR FASCICULAR BLOCK
-normal saline stopped. HR improved
-continue to monitor
#essential HTn
-hctz held
-continue valsartan. BP 128/71. BP well controlled overall.
#type 2 Dm
-sliding scale
-metformin and Januvia hold for now
-CHO diet
-POC am 125
#IBS
-Linzess continued
#GERD
-PPI continued
#HLD
-statin
#Acute Thrombocytopenia
#Chronic leukopenia
#Anemia ?dilutional some component
-Plt at 119 improving
-monitor for now
-trend wbc and fever curve-due to viral infection ?
-transfuse hgb <7.
#DVT prophylaxis
-Lovenox
#CODE status
-full code
d/w with son pelon at bedside in details.
Anticipated Discharge: Within 24 hours
Subjective/Interval History
-
Date of Service: April 19, 2024
states feeling alot better
remains with sore throat-improving
afebrile for 24h
Objective Data
-
Labs:
Laboratory Results
04/19/24 04/19/24
05:00 09:02
WBC 2.2 L*
Hgb 11.8 L
Hct 34.4 L
Plt Count 119 L
Sodium 138 D 136
Potassium 4.0 4.1
Chloride 100 99
Carbon Dioxide 27 27
BUN 14 15
Creatinine 0.6 0.6
Glucose 122 H 142 H
Calcium 8.4 8.7
Vital Signs:
Vital Signs
Temp Pulse Resp BP Pulse Ox
98.1 F 83 16 128/81 98
04/19/24 11:19 04/19/24 11:19 04/19/24 11:19 04/19/24 11:19 04/19/24 11:19
I&O
04/18/24 04/19/24 04/20/24
06:59 06:59 06:59
Intake Total 1080 / 1320 240 / 240
Output Total 600 / 1200 600 / 600
Balance 480 / 120 -360 / -360
Data Reviewed
-
Total Time Spent with Patient (in minutes): 55
--- NOTE | 2024-04-19 15:23 | W.PN.NEPH.PH ---
Today's Communication / Plan
-
Sign off
Assessment/Plan
-
69-year-old female past medical history of hypertension, GERD, diabetes, presents emergency department today with concerns of headache and dizziness since last night and cough
Renal consult for hyponatremia of 126
Review of records she has had hyponatremia in 2021 is lowest 125
History is obtained via her son at the bedside as the patient is not Irish speaking
She denies NSAID or any excessive water intake she is a nonalcoholic
She has had decreased p.o. intake over the last week
She is also on hydrochlorothiazide as an outpatient but has been on that for quite some time
Impression:
Hyponatremia of 126 on hydrochlorothiazide.
Fever associated with cough.
Hypertension stable.
Diabetes. Stable
Plan:
Urine sodium 20 in the setting of fever decreased p.o. intake on hydrochlorothiazide.
Discontinued hydrochlorothiazide.
Sodium up to 136
Fluid restrict for now but can loosen fluid restriction as serum sodium rise
We will sign off
-
-
Date of Service: April 19, 2024
CC / HPI / ROS
-
Chief Complaint:
Hyponatremia
History of Present Illness:
Serum sodium up to 136 following Samsca administration and withholding hydrochlorothiazide
Hemodynamically stable
Review of Systems:
Nonoliguric
No chest pain or shortness of breath
Labs
-
Labs:
WBC 2.2 10^3/uL (4.8-10.8) L* 04/19/24 05:00
RBC 4.03 10^6/uL (4.20-5.40) L 04/19/24 05:00
Hgb 11.8 g/dL (12.0-16.0) L 04/19/24 05:00
Hct 34.4 % (37.0-47.0) L 04/19/24 05:00
Plt Count 119 10^3/uL (130-400) L 04/19/24 05:00
Sodium 136 mmol/L (135-145) 04/19/24 09:02
Potassium 4.1 mmol/L (3.5-5.1) 04/19/24 09:02
Chloride 99 mmol/L (98-107) 04/19/24 09:02
Carbon Dioxide 27 mmol/L (22-30) 04/19/24 09:02
BUN 15 mg/dl (7-17) 04/19/24 09:02
Creatinine 0.6 mg/dL (0.6-1.0) 04/19/24 09:02
eGFR > 60.00 04/19/24 09:02
Glucose 142 mg/dl (70-99) H 04/19/24 09:02
Calcium 8.7 mg/dl (8.4-10.2) 04/19/24 09:02
Phosphorus 3.4 mg/dl (2.5-4.5) 04/18/24 05:18
Albumin 4.2 g/dl (3.5-5.0) 04/17/24 09:43
Physical Exam
-
Vital Signs:
Vital Signs
Temp Pulse Resp BP Pulse Ox
98.1 F 83 16 128/81 98
04/19/24 11:19 04/19/24 11:19 04/19/24 11:19 04/19/24 11:19 04/19/24 11:19
Cardiovascular:: Regular rate and rhythm
Respiratory:: Bilateral: CTA
Lung Excursion:: Normal
Abdomen:: Nontender and Soft
Bowel Sounds:: Normal
Extremity Edema:: None: Bilateral:
Munoz Catheter: No
[2024-04-19 15:37] VITALS: BP 112/70
[2024-04-19 16:40] LABS: Glucose - Point of Care 102 mg/dl (70-99)
--- NOTE | 2024-04-19 16:58 | CM ---
Pts son Bhanu interpreted for pt.
Pt not ready for dc today.
Offered VN she declined need.
Son will drive her home at dc.
PLAN Home no needs
[2024-04-19] MEDS: LOVENOX 40 MG SC (17:01)
[2024-04-19] MEDS: CRESTOR 10 MG PO (17:01)
[2024-04-19 22:04] LABS: Glucose - Point of Care 192 mg/dl (70-99)
[2024-04-19 23:45] VITALS: BP 129/82
[2024-04-20] MEDS: LINZESS 145 MCG PO (05:27)
[2024-04-20 06:50] LABS: Hematocrit 34.6 % (37.0-47.0); Hemoglobin 11.7 g/dL (12.0-16.0); Mean Corp Hgb Conc. 33.8 g/dL (33.0-37.0); Mean Corpuscular Hgb 29.6 pg (27.0-31.0); Mean Corpuscular Volume 87.6 fL (81.0-99.0); Mean Platelet Volume 9.6 fL (7.4-10.4); Platelet Count 120 10^3/uL (130-400); Red Blood Cell Count 3.95 10^6/uL (4.20-5.40); Red Cell Dist. Width 12.1 % (11.5-14.5); White Blood Cell Count 2.4 10^3/uL (4.8-10.8)
[2024-04-20 06:58] LABS: Blood Urea Nitrogen 11 mg/dl (7-17); Calcium 8.1 mg/dl (8.4-10.2); Carbon Dioxide 30 mmol/L (22-30); Chloride 99 mmol/L (98-107); Estimated Creatinine Clearance 77 ml/min; Glucose 116 mg/dl (70-99); Potassium 4.2 mmol/L (3.5-5.1); eGFR > 60.00
[2024-04-20 07:05] LABS: Sodium 135 mmol/L (135-145)
[2024-04-20 07:47] LABS: Glucose - Point of Care 130 mg/dl (70-99)
[2024-04-20 07:56] VITALS: BP 128/81
[2024-04-20] MEDS: NOVOLOG FLEXPEN-LOW RESISTANCE SC (08:26)
[2024-04-20] MEDS: DIOVAN 80 MG PO (08:29)
[2024-04-20] MEDS: TESSALON PERLES 200 MG PO (08:29)
[2024-04-20] MEDS: ANESTHETIC LOZENGE 1 LOZENGE PO (08:29)
--- NOTE | 2024-04-20 11:05 | W.PN.HOSP.TC ---
Today's Communication/Plan
-
dc home
Assessment / Plan
Assessment / Plan
#Upper respiratory tract l infection likely viral infection.
#Sepsis-poa 2/2 above
-covid flu negative
-CXR noted-no infiltrate.
-Tessalon prn for cough
-Tylenol prn for CONTRERAS
-RSV negative.
-UA negative.
-Blood culture negative so far.
-fevers seems to have subsided
#Acute on chronic hyponatremia likely dehydration/diuretics/decrease po intake
-Sodium stable at 135.
-Head CT with No CT evidence for acute intracranial hemorrhage or transcortical infarct.Moderate white matter leukoaraiosis (greatest in the left frontal lobe).
-normal saline 80x1 bag-Dced
-trend BMP
-DC HCTZ
-appreciate nephro recs.
#tachycardia likely from dehydration
-EKg with sinus tachycardia, incomplete right bundle branch and left bundlen branch block, incomplete LEFT ANTERIOR FASCICULAR BLOCK
-normal saline stopped. HR improved
-continue to monitor
#essential HTn
-hctz held
-continue valsartan. BP 128/81. BP well controlled overall.
#type 2 Dm
-sliding scale
-metformin and Januvia hold for now
-CHO diet
-POC am 130
#IBS
-Linzess continued
#GERD
-PPI continued
#HLD
-statin
#Acute Thrombocytopenia
#Chronic leukopenia
#Anemia ?dilutional some component
-Plt at 119 improving
-monitor for now
-trend wbc and fever curve-due to viral infection ?
-transfuse hgb <7. Recommend repeat CBC which was relayed to patient and patient son at bedside who verbalized understanding.
#DVT prophylaxis
-Lovenox
#CODE status
-full code
d/w with son pelon at bedside in details. On a daily basis.
More than 30 minutes spent in discharge including
Final examination of the patient
Summarizing hospital stay
Instructions for continuing care to all relevant caregivers
Preparation of discharge records, prescriptions, and referral forms
Total time spent (in minutes): 55
Anticipated Discharge: Today
Subjective/Interval History
-
Date of Service: April 20, 2024
Feeling a lot better
Tolerating diet
Intermittent cough
Afebrile
Objective Data
-
Labs:
Laboratory Results
04/20/24
05:02
WBC 2.4 L*
Hgb 11.7 L
Hct 34.6 L
Plt Count 120 L
Sodium 135
Potassium 4.2
Chloride 99
Carbon Dioxide 30
BUN 11
Creatinine 0.5 L
Glucose 116 H
Calcium 8.1 L
Vital Signs:
Vital Signs
Temp Pulse Resp BP Pulse Ox
98.2 F 73 17 128/81 98
04/20/24 07:56 04/20/24 07:56 04/20/24 07:56 04/20/24 07:56 04/20/24 07:56
I&O
04/19/24 04/20/24 04/21/24
06:59 06:59 06:59
Intake Total 1080 / 1320 1320 / 1320
Output Total 600 / 1200 600 / 600
Balance 480 / 120 720 / 720
Physical Exam
-
General: Well Developed and No Apparent Distress
HEENT: Normocephalic, Atraumatic and Moist Mucous Membranes
Respiratory: Clear to Auscultation
Cardiac: Regular Rhythm and S1/S2; Negative Murmur, Rub or Gallop
GI: Soft, Nontender, Nondistended and Normal Bowel Sounds; Negative Organomegaly
Rectal: Deferred by Provider
Musculoskeletal: No Clubbing, No Cyanosis and No Edema
Skin: Negative Rash
Neuro: Awake, Alert, Oriented, AO x 3, No Motor Deficits and Nonfocal/Grossly Intact
Psych: Calm
--- NOTE | 2024-04-20 11:08 | W.DCSUMMARY ---
Discharge Summary
Discharge Data
Date of Admission: 04/17/24
Date of Discharge: 04/20/24
-
Pending Results: No
Hospital Course
69-year-old female past medical history of hypertension, diabetes melitis, chronic constipation, GERD who is presenting from home with complaints of weakness. Patient was complaining of sore throat and was having fevers. Patient was negative for
COVID, influenza and RSV. Patient blood cultures were negative. UA was negative. Chest x-ray was negative. Patient was also found to have hyponatremia. Patient with significantly decreased p.o. intake and received IV fluid. Persistent
hyponatremia nephrology was consulted. Recommended to increase oral intake. Patient sodium slowly started to uptrend. Sodium corrected without any intervention. Patient symptomology improved. Patient remained afebrile. Hydrochlorothiazide was
seem to be the culprit and was discontinued. Blood pressure remained stable. Patient also with leukopenia and thrombocytopenia which seems secondary to viral infection. CBC was improving. Recommended to send to have repeat blood work with
primary care doctor. All patient and son questions were answered. Patient be discharged home.
Discharge Plan
-
Patient Disposition: Home (Routine Discharge)
Discharge Diagnosis/Procedures: Sepsis likely secondary to upper respiratory tract infection secondary to viral infection
Hyponatremia
Tachycardia secondary to dehydration
Leukopenia
Thrombocytopenia
Condition: Fair
Diet: Diabetic, Carb Controlled
Activity: As tolerated
Driving Restrictions: As prior to admission
Blood Work: CBC and BMP in 7 days via primary doctor
Referrals:
Elizabeth Crow MD [Family Provider] - in less than 1 week
Additional Discharge Medication Instructions: Hydrochlorothiazide was discontinued.
Prescriptions:
Continued
lidocaine 4 % Adhesive Patch,Medicated
1 patch TOPICAL DAILYPRN PRN (Reason: back of neck)
valsartan 80 mg Tablet
80 mg PO DAILY
pantoprazole [Protonix] 40 mg Tablet,Delayed Release (Dr/Ec)
40 mg PO DAILYPRN PRN (Reason: GERD)
metformin 750 mg Tablet Extended Release 24 Hr
750 mg PO BID
rosuvastatin [Crestor] 10 mg Tablet
10 mg PO QPM
cholecalciferol (vitamin D3) [Vitamin D3] 25 mcg (1,000 unit) Tablet
25 mcg PO DAILY
Januvia 100 mg Tablet
100 mg PO DAILY
Linzess 145 mcg Capsule
145 mcg PO DAILY
acetaminophen [Tylenol] 325 mg Tablet
650 mg PO Q6HPRN PRN (Reason: headache)
Discontinued
hydrochlorothiazide 25 mg Tablet
25 mg PO DAILY
Discharge Orders:
Discharge Patient (As Directed); Ordered 04/20/24
Ordered By: Regis Pablo
Discharge Date and Time
Discharge Date/Time: 04/20/24 11:55
Print Language: GEORGIAN
[2024-04-20 11:34] VITALS: BP 145/90
== END 2024-04-20 11:55 | disposition home or self-care (01) | DRG 872 ==
LOC: 3 WEST ACU 13:46
PROVIDERS: Physician Assistant; Registered Nurse; ADMITTING PHYSICIAN Hospitalist; CONSULT PHYSICIAN Internal Medicine Nephrology; EMERGENCY PHYSICIAN Emergency Medicine; FAMILY PHYSICIAN Internal Medicine
DX: A41.9 Sepsis, unspecified organism (principal); E87.1 Hypo-osmolality and hyponatremia; I67.81 Acute cerebrovascular insufficiency; J06.9 Acute upper respiratory infection, unspecified; R42 Dizziness and giddiness; I10 Essential (primary) hypertension; K21.9 Gastro-esophageal reflux disease without esophagitis; E11.9 Type 2 diabetes mellitus without complications; K58.1 Irritable bowel syndrome with constipation; E86.0 Dehydration; G89.29 Other chronic pain; I44.4 Left anterior fascicular block; E78.00 Pure hypercholesterolemia, unspecified; D69.6 Thrombocytopenia, unspecified; D72.819 Decreased white blood cell count, unspecified; D64.9 Anemia, unspecified; Z79.84 Long term (current) use of oral hypoglycemic drugs; Z11.52 Encounter for screening for COVID-19
CPT/HCPCS: 70450; 71046; 80048; 80053; 81003; 81015; 82607; 82728; 82746; 82962; 83036; 83540; 83550; 83735; 83930; 83935; 84100; 84300; 84484; 85025; 85027; 87040; 87086; 87502; 87807; 87811; 93005; 96374; 96375; 97163; 99285

== ENCOUNTER → 2024-09-30 13:46 | Outpatient (REF) | payer OTHER, SELFPAY | LOC: WDC 13:46 | PROVIDERS: ATTENDING PHYSICIAN Internal Medicine | DX: Z12.31 Encounter for screening mammogram for malignant neoplasm of breast (principal) | CPT/HCPCS: 77063; 77067 ==

== ENCOUNTER 2024-10-01 15:14 | Emergency (ER) | payer OTHER, SELFPAY ==
[2024-10-01 15:17] VITALS: BP 135/76
--- NOTE | 2024-10-01 16:21 | ED.GENMED ---
History of Present Illness
General
Chief Complaint: Skin Problem
Source: patient
Exam Limitations: none
Time Seen by Provider: 10/01/24 16:14
History of Present Illness
History of Present Illness:
69-year-old female presents with painful bumps protruding from her anus starting today. She was struggling to have a bowel movement and was constipated. Since then she has had pain to the anal area. She denies any bleeding. She does occasionally
take a stool softener. No vomiting. No other complaints
Past History
Past History
ED Past Medical History: HTN and NIDDM
Social History
Tobacco: Non-smoker
Alcohol: None
Phy Exam
Physical Exam
Physical Exam:
General: Well-appearing female no acute respiratory distress
HEENT normocephalic atraumatic
Heart: Regular rate and rhythm
Rectal exam: This was performed with female water project engineer in the room. There is 3 separate hemorrhoids externally noted. None of these are thrombosed. These are not indurated or fluctuant. They are soft. No bleeding.
Extremities: No cyanosis
Course
Vital Signs
Initial and Last Documented VS:
Initial Vital Signs
Temp Pulse Resp BP Pulse Ox
98.2 F 82 20 135/76 99
10/01/24 15:17 10/01/24 15:17 10/01/24 15:17 10/01/24 15:17 10/01/24 15:17
Last Documented Vital Signs
Temp Pulse Resp BP Pulse Ox
98.2 F 82 20 135/76 99
10/01/24 15:17 10/01/24 15:17 10/01/24 15:17 10/01/24 15:17 10/01/24 15:17
*Pulse Oximetry
SaO2: 99
Oxygen Mode of Delivery: Room air
Patient hypoxic: no
*Critical Care Note
Total Time (30-74mins, 75-104mins- exclusive of procedures): Not Applicable
Update Note
Update Note:
External hemorrhoids nonthrombosed. Recommend stool softeners regularly to prevent constipation. Will prescribe topical steroid and refer to colorectal.
ED Attending Note
-
Portions of this chart may have been created with voice recognition software.� Occasional wrong word or��sound alike� substitutions may have occurred due to the inherent limitations of voice recognition software.
Discharge Plan
Departure
Patient Disposition: Home (Routine Discharge)
Date of Disposition: 10/01/24
Time of Disposition: 16:23
Patient with high blood pressure during this ER visit?: No
Discharge Problem:
Hemorrhoids
Instructions: Hemorrhoids
Prescriptions:
New
hydrocortisone [Proctocort] 1 % cream
1 applic topical TID Qty: 28.35 0RF
No Action
lidocaine 4 % Adhesive Patch,Medicated
1 patch TOPICAL DAILYPRN PRN (Reason: back of neck)
valsartan 80 mg Tablet
80 mg PO DAILY
pantoprazole [Protonix] 40 mg Tablet,Delayed Release (Dr/Ec)
40 mg PO DAILYPRN PRN (Reason: GERD)
metformin 750 mg Tablet Extended Release 24 Hr
750 mg PO BID
rosuvastatin [Crestor] 10 mg Tablet
10 mg PO QPM
cholecalciferol (vitamin D3) [Vitamin D3] 25 mcg (1,000 unit) Tablet
25 mcg PO DAILY
Januvia 100 mg Tablet
100 mg PO DAILY
Linzess 145 mcg Capsule
145 mcg PO DAILY
acetaminophen [Tylenol] 325 mg Tablet
650 mg PO Q6HPRN PRN (Reason: headache)
Referrals:
[facility], [Other]
Lorenzo Hernandez MD [Active, ColoRectal]
Elizabeth Crow MD [Family Provider]
Activity Restrictions/Additional Instructions:
Continue to use MiraLAX at least twice daily until the stools are soft. Avoid constipation. Use steroid as directed. If symptoms are recurrent this and follow-up with colorectal specialist
Interventions
Interventions:
*General Assessment Last Done: 10/01/24 15:17
Discharge Date and Time
Print Language: EGYPTIAN
== END 2024-10-01 16:35 | disposition home or self-care (01) ==
LOC: EMR 15:14
PROVIDERS: EMERGENCY PHYSICIAN Emergency Medicine; FAMILY PHYSICIAN Internal Medicine
DX: K64.4 Residual hemorrhoidal skin tags (principal); I10 Essential (primary) hypertension; E11.9 Type 2 diabetes mellitus without complications
CPT/HCPCS: 99283